=== PATIENT | male | born 1965 | race Caucasian/White ===

== ENCOUNTER → 2020-01-06 | Outpatient (CLI) | payer OTHER ==
--- NOTE | 2020-01-07 10:30 | RAD ---
EXAM DESCRIPTION: Cervical Spine, 2-3 Views CLINICAL HISTORY: 54 years Male, CERVICAL RADICULOPATHY COMPARISON: None. FINDINGS: Two views of the cervical spine show no vertebral body fracture or subluxation. Small anterior osteophytes at C5-6. No disc space narrowing. The spinous processes are intact. IMPRESSION: Mild degenerative changes at C5-6, otherwise unremarkable exam. Electronically signed by: Jose Angel Sutton MD 01/07/2020 10:28 AM CDT
--- NOTE | 2020-01-07 10:31 | RAD ---
EXAM DESCRIPTION: Shoulder,Left 2 or More Views CLINICAL HISTORY: 54 years Male, PAIN IN LEFT SHOULDER COMPARISON: None. FINDINGS: Two views of the left shoulder show no acute fracture or malalignment. Widening of the left AC joint is probably not acute and suggests prior surgery or remote trauma. No overlying soft tissue swelling to suggest AC joint injury. No soft tissue abnormality. IMPRESSION: Widening of the left AC joint, likely not acute and related to remote trauma or prior surgery. If the patient has point tenderness over the AC joint, the less likely possibility of AC joint separation should be considered. Otherwise unremarkable exam. Electronically signed by: Jose Angel Sutton MD 01/07/2020 10:29 AM CDT
--- NOTE | 2020-01-07 10:32 | RAD ---
EXAM DESCRIPTION: Thoracic Spine,AP Lateral CLINICAL HISTORY: 54 years Male, CERVICAL RADICULOPATHY COMPARISON: None. FINDINGS: Two views of the thoracic spine show no vertebral body fracture or subluxation. Tiny anterior osteophytes at several levels without disc space narrowing. No posterior rib abnormality. IMPRESSION: Mild degenerative changes otherwise unremarkable exam. Electronically signed by: Jose Angel Sutton MD 01/07/2020 10:31 AM CDT
--- NOTE | 2020-01-07 10:32 | RAD ---
EXAM DESCRIPTION: Lumbar Spine 3 Views CLINICAL HISTORY: 54 years Male, LUMBAR RADICULOPATHY COMPARISON: None. FINDINGS: Three views of the lumbar spine show no vertebral body fracture or subluxation. Tiny anterior aspect at several levels. No disc space narrowing. The spinous and transverse processes are intact. The sacrum and sacroiliac joints are unremarkable. IMPRESSION: Mild degenerative changes at several levels in the lower lumbar spine. Electronically signed by: Jose Angel Sutton MD 01/07/2020 10:30 AM CDT
== END ==
LOC: RAD 15:12
PROVIDERS: ATTEND Nurse Practitioner Family
DX: M47.22 Other spondylosis with radiculopathy, cervical region (principal); M47.26 Other spondylosis with radiculopathy, lumbar region; M25.812 Other specified joint disorders, left shoulder